=== PATIENT | male | born 1950 | race Caucasian/White ===

== ENCOUNTER 2020-12-05 08:48 | Outpatient (CLI) | payer MEDICARE ==
[2020-11-06 16:15] LABS: Hemoglobin 14.5 g/dL (13.5-17.5)
[2020-11-06 16:23] LABS: Anion Gap 14 mmol/L (10-20); BUN (Urea Nitrogen) 11 mg/dL (8.4-25.7); Calc. Creatinine Clearance 0 mL/min (70-130); Calcium 8.6 mg/dL (7.8-10.44); Carbon Dioxide 26 mmol/L (23-31); Chloride 100 mmol/L (98-107); Glucose 94 mg/dL (80-115); Potassium 4.2 mmol/L (3.5-5.1); Sodium 136 mmol/L (136-145)
[2020-11-07 02:58] LABS: SARS-CoV-2 PCR by NAA Not Detected (NotDetected)
[2020-11-21 01:57] LABS: SARS-CoV-2 PCR by NAA Not Detected (NotDetected)
[2020-12-05 12:22] LABS: #Basophils 0.1 10x3/uL (0.0-0.2); #Eosinphils 0.1 10x3/uL (0.0-0.5); #Monocytes 0.7 10x3/uL (0.0-1.1); #Neutrophils 5.7 10x3/uL (1.5-8.4); %Basophils 0.7 % (0.0-2.0); %Eosinophils 1.1 % (0.0-6.0); %Lymphocytes 13.8 % (18.0-47.0); %Monocytes 8.6 % (0.0-10.0); %Neutrophils 75.3 % (40.0-75.0); Anion Gap 15 mmol/L (10-20); BUN (Urea Nitrogen) 10 mg/dL (8.4-25.7); Calc. Creatinine Clearance 0 mL/min (70-130); Calcium 8.9 mg/dL (7.8-10.44); Carbon Dioxide 27 mmol/L (23-31); Chloride 101 mmol/L (98-107); Glucose 93 mg/dL (80-115); Hemoglobin 14.4 g/dL (13.5-17.5); Mean Corpuscular Hemoglobin 30.3 pg (27.0-33.0); Mean Corpuscular Volume 94.7 fl (81.2-95.1); Mean Platelet Volume 10.1 fl (7.4-10.4); Platelet Count 288 10x3/uL (150-450); Potassium 4.5 mmol/L (3.5-5.1); RBC Distribution Width 13.3 % (11.5-14.5); Red Blood Cell (RBC) Count 4.75 10x6/uL (4.32-5.72); Sodium 138 mmol/L (136-145); White Blood Cell (WBC) Count 7.5 10x3/uL (3.5-10.5)
[2020-12-05 12:41] LABS: PTT 30.6 sec (22.0-33.0); Prothrombin Time 10.9 sec (9.5-12.1)
[2020-12-05 20:03] LABS: SARS-CoV-2 PCR by NAA Not Detected (NotDetected)
== END 2020-12-05 08:49 | disposition home or self-care (01) ==
LOC: CSHLAB 08:48
PROVIDERS: ATTEND Orthopaedic Surgery
DX: Z01.818 Encounter for other preprocedural examination (principal); Z20.822 Contact with and (suspected) exposure to COVID-19; R22.1 Localized swelling, mass and lump, neck; I48.91 Unspecified atrial fibrillation; I45.10 Unspecified right bundle-branch block
CPT/HCPCS: 71046; 80048; 85014; 85018; 85025; 85610; 85730; 87635; 93005; 93010; U0003; U0005

== ENCOUNTER 2020-12-10 06:00 | Day surgery (SDC) | payer MEDICARE, OTHER ==
[2020-12-09 12:44] VITALS: BMI 52.3
[2020-12-10] MEDS ORDERED: Lidocaine 1% w/Epinephrine 1:100K 20 ML VIAL ONE (10:21)
[2020-12-10] MEDS ORDERED: Chlorhexidine Gluconate 15 ML UDCUP SSP SCH (10:30)
[2020-12-10] MEDS ORDERED: Hydrocortisone 1% Cream 30 GM TUBE TOP SCH (10:30)
[2020-12-10] MEDS ORDERED: Lidocaine 1% MPF 2 ML VIAL ONE (11:55)
[2020-12-10] MEDS ORDERED: Oxymetazoline HCl 0.05% ( 15 ML ) ONE (12:27)
[2020-12-10] MEDS ORDERED: PROPOFOL 20 ML ONE (12:33)
[2020-12-10] MEDS ORDERED: Fentanyl 100 MCG/2 ML VIAL ONE (12:34)
[2020-12-10] MEDS ORDERED: Midazolam HCl 2 mg/2 ml Vial ONE (12:34)
[2020-12-10] MEDS ORDERED: Ondansetron PF 4 MG/2 ML Vial ONE (13:16)
[2020-12-10] MEDS ORDERED: Dexamethasone 4 mg/ml Vial ONE (13:16)
[2020-12-10] MEDS ORDERED: Metoprolol Tartrate 5 MG/5 ML VIAL ONE (13:16)
[2020-12-10] MEDS ORDERED: Rocuronium Bromide 10 MG/ML (10ML VIAL) ONE (13:16)
[2020-12-10] MEDS ORDERED: Lidocaine 1% PF 5 ML VIAL ONE (13:16)
[2020-12-10] MEDS ORDERED: Glycopyrrolate 0.2 MG/ML 5 ML SYRINGE ONE (13:16)
[2020-12-10] MEDS ORDERED: Morphine 1 ML ONE (13:24)
[2020-12-10] MEDS ORDERED: Neomycin-Polymyxin 1 ML AMP ONE (13:43)
[2020-12-10] MEDS ORDERED: Bupivacaine PF 0.5% 30 ML VIAL ONE (14:20)
[2020-12-10] MEDS ORDERED: EPINEPHrine 1 MG/ML AMP ONE (14:20)
[2020-12-10] MEDS ORDERED: SODIUM CHLORIDE 0.9% FS PRN (15:25)
[2020-12-10] MEDS ORDERED: TRANEXAMIC ACID 1000 MG FS PRN (15:25)
[2020-12-10] MEDS ORDERED: Tranexamic Acid 1,000 MG/10 ML VIAL ONE ×2 (16:05→18:08)
[2020-12-10] MEDS ORDERED: HYDROcodone/Acetaminophen 5/325 mg Tablet ONE (18:36)
== END 2020-12-10 23:00 | disposition home or self-care (01) ==
LOC: CSHSDC 06:00
PROVIDERS: ATTEND Oral & Maxillofacial Surgery
DX: Z41.8 Encounter for other procedures for purposes other than remedying health state (principal); K02.9 Dental caries, unspecified; C01 Malignant neoplasm of base of tongue
CPT/HCPCS: J0171; J1100; J2250; J2270; J2405; J2704; J3010; S0020

== ENCOUNTER 2023-10-27 21:23 | Observation (INO) | payer MEDICARE, OTHER ==
[2023-10-28] MEDS ORDERED: Ondansetron PF 4 MG/2 ML Vial IVP PRN (01:36)
[2023-10-28] MEDS ORDERED: Acetaminophen 325 MG TAB PO PRN (01:36)
[2023-10-28] MEDS ORDERED: Guaifenesin DM 100-10/5 ML UDCUP PO PRN (01:36)
[2023-10-28] MEDS ORDERED: HYDROcodone/Acetaminophen 5/325 mg Tablet PO PRN (01:36)
[2023-10-28] MEDS ORDERED: Calcium Carbonate 500 MG ChewTAB PO PRN (01:36)
[2023-10-28] MEDS ORDERED: Senokot S 8.6-50 MG TAB PO PRN (01:36)
[2023-10-28 01:49] VITALS: BMI 53.8
[2023-10-28 02:34] LABS: Bilirubin Neg (Negative); Blood, Urine 10 (Negative); Clarity Slightly Cloudy (Clear); Glucose, Urine (Dipstick) Normal (Negative); Ketone, Urine Negative (Negative); Leukocyte 500 (Negative); Nitrite Positive (Negative); Protein, Urine (Dipstick) Negative (Neg-Trace); Specific Gravity, Urine 1.005 (1.005-1.030); Urobilinogen Normal mg/dL (Less than 2)
[2023-10-28 02:43] LABS: Bacteria/HPF 3+ HPF (None Seen); RBC/HPF 0-3 HPF (0-3); Squamous Epithelial 0-3 HPF (0-3)
[2023-10-28 03:31] LABS: #Basophils 0.1 10x3/uL (0.0-0.2); #Eosinphils 0.1 10x3/uL (0.0-0.5); #Monocytes 0.5 10x3/uL (0.0-1.1); %Basophils 0.7 % (0.0-2.0); %Eosinophils 1.6 % (0.0-6.0); %Lymphocytes 5.8 % (18.0-47.0); %Monocytes 6.5 % (0.0-10.0); %Neutrophils 85.1 % (40.0-75.0); Hemoglobin 9.6 g/dL (13.5-17.5); Mean Corpuscular Hemoglobin 26.9 pg (27.0-33.0); Mean Corpuscular Volume 86.8 fl (81.2-95.1); Mean Platelet Volume 9.7 fl (7.4-10.4); PTT 29.4 sec (22.0-33.0); Platelet Count 342 10x3/uL (150-450); Prothrombin Time 10.6 sec (9.5-12.1); RBC Distribution Width 15.3 % (11.5-14.5); Red Blood Cell (RBC) Count 3.57 10x6/uL (4.32-5.72); White Blood Cell (WBC) Count 7.1 10x3/uL (3.5-10.5)
[2023-10-28 03:45] LABS: Anion Gap 14 mmol/L (10-20); BUN (Urea Nitrogen) 16 mg/dL (8.4-25.7); Calc. Creatinine Clearance 136 mL/min (70-130); Calcium 8.8 mg/dL (7.8-10.44); Carbon Dioxide 26 mmol/L (23-31); Chloride 99 mmol/L (98-107); Estimated GFR 54; Glucose 97 mg/dL (83-110); Iron 36 ug/dL (65-175); Iron Binding Capacity, Total 390 mcg/dL (261-462); Potassium 4.1 mmol/L (3.5-5.1); Sodium 135 mmol/L (136-145)
[2023-10-28 03:54] LABS: Ferritin 20.08 ng/mL (22-322); Thyroid Stimulating Hormone 4.7537 uIU/mL (0.35-4.94)
[2023-10-28 04:11] LABS: Troponin I 0.012 ng/mL (< 0.028)
[2023-10-28] MEDS ORDERED: Furosemide 40 MG (4 mL) VIAL SLOW IVP SCH (06:00)
[2023-10-28] MEDS ORDERED: cefTRIAXone\\ROCEPHIN 2 GM in Sodium Chloride 0.9% 100 ML IVPB SCH (08:00)
[2023-10-28] MEDS ORDERED: Multivitamin W/ Minerals 1 TAB PO SCH (09:00)
[2023-10-28] MEDS ORDERED: Thiamine 100 MG TAB PO SCH (09:00)
[2023-10-28] MEDS ORDERED: Citalopram 20 MG TAB PO SCH (09:00)
[2023-10-28] MEDS ORDERED: Lisinopril 10 MG TAB PO SCH (09:00)
[2023-10-28] MEDS ORDERED: Polyethylene Glycol 3350 17 GM Packet PO SCH (09:00)
[2023-10-28] MEDS ORDERED: Docusate 100 MG CAP PO SCH (09:00)
[2023-10-28] MEDS ORDERED: Aspirin 81 mg Enteric Coated Tablet PO SCH (09:00)
[2023-10-28] MEDS ORDERED: Magnesium Oxide 400 MG TAB PO SCH (09:00)
[2023-10-28] MEDS ORDERED: Potassium Chloride 10 MEQ TAB PO SCH (09:00)
[2023-10-28] MEDS: levETIRAcetam 500 MG TAB PO SCH ×2 (09:24→22:12)
[2023-10-28] MEDS: Memantine 10 MG TAB PO SCH ×2 (09:24→22:13)
[2023-10-28] MEDS: QUEtiapine 100 MG TAB PO SCH ×2 (09:25→22:13)
[2023-10-28] MEDS: Clobetasol 0.05% Cream 15 gm Tube TOP SCH ×2 (09:30→22:24)
[2023-10-28] MEDS ORDERED: Digoxin 0.5 MG/2 ML AMP SLOW IVP SCH (13:00)
[2023-10-28] MEDS ORDERED: Iopamidol 370 76% 100 ML VIAL ONE (13:49)
[2023-10-28] MEDS ORDERED: clonazePAM 0.5 MG TAB PO SCH (21:00)
[2023-10-29 00:41] VITALS: BP 123/84; TEMP 97.5
[2023-10-29] MEDS ORDERED: Digoxin 0.25 MG TAB PO SCH (09:00)
== END 2023-10-29 00:17 ==
LOC: CSHTELE 10-28 00:51
PROVIDERS: ADMIT Student in an Organized Health Care Education/Training Program; ATTEND Nurse Practitioner Family
DX: R06.09 Other forms of dyspnea (principal); D64.9 Anemia, unspecified; N39.0 Urinary tract infection, site not specified; E66.01 Morbid (severe) obesity due to excess calories; I10 Essential (primary) hypertension; I48.11 Longstanding persistent atrial fibrillation; G40.909 Epilepsy, unspecified, not intractable, without status epilepticus; M19.90 Unspecified osteoarthritis, unspecified site; F31.9 Bipolar disorder, unspecified; K59.00 Constipation, unspecified; K21.9 Gastro-esophageal reflux disease without esophagitis; I77.810 Thoracic aortic ectasia; Z68.43 Body mass index [BMI] 50.0-59.9, adult; Z85.810 Personal history of malignant neoplasm of tongue; Z90.89 Acquired absence of other organs; Z98.890 Other specified postprocedural states; Z79.82 Long term (current) use of aspirin; Z79.899 Other long term (current) drug therapy; Z87.891 Personal history of nicotine dependence
CPT/HCPCS: 36415; 71275; 80048; 81001; 82607; 82728; 83540; 83550; 84443; 84484; 85025; 85610; 85730; 96374; 96375; G0378; J0696; J1160; J1940; J3490; Q9967